=== PATIENT | female | born 1980 | race Caucasian/White ===

== ENCOUNTER 2020-07-13 11:55 | Emergency (ER) | payer OTHER ==
[~2020-07-13 11:55] MED LIST: COLAZAL750 MG PO; CYMBALTA 30MG C30 MG PO; HUMIRA40 MG/0.8 SC; K-DUR20 MEQ PO; PROTONIX 40MG T40 MG PO
[2020-07-13 12:41] LABS: BASOPHIL 0.8 % (0-2); EOSINOPHIL 2.1 % (0-5); HCT 39.1 % (37.0-47.0); MCH 24.7 pg (25.0-31.0); MCHC 30.7 g/dL (32.0-36.0); MCV 80.6 fL (78.0-100.0); MONOCYTE 10.8 % (0-12); MPV 9.2 fL (6.0-9.5); NEUTROPHIL 60.2 % (41-80); NRBC 0; PLT 458 K/uL (150-400); RBC 4.85 M/uL (4.20-5.40); RDW 16.9 % (11.5-14.0); WBC 8.4 K/uL (4.0-10.5)
[2020-07-13 12:41] LABS: BILIRUBIN NEGATIVE (NEGATIVE); BLOOD NEGATIVE Ery/uL (NEGATIVE); CLARITY CLEAR (CLEAR); COLOR YELLOW (YELLOW); GLUCOSE (U) NORMAL (NORMAL); LEUKOCYTES NEGATIVE Leu/uL (NEGATIVE); NITRITE NEGATIVE (NEGATIVE); PROTEIN NEGATIVE (NEGATIVE); UROBILINOGEN 0.2 mg/dL (0.2-1.0)
[2020-07-13 13:00] LABS: ALBUMIN 3.6 g/dL (3.4-5.0); BILIRUBIN - TOTAL 0.3 mg/dL (0.2-1.0); BUN/CREAT RATIO (CALC) 12.3 RATIO; CREATININE 0.65 mg/dL (0.51-0.95); GLOBULIN (CALCULATION) 4.1 g/dL; TOTAL PROTEIN 7.7 g/dL (6.4-8.2)
== END 2020-07-13 15:10 | disposition home or self-care (01) ==
LOC: FER 11:55
PROVIDERS: Internal Medicine
DX: R10.84 Generalized abdominal pain (principal); R11.0 Nausea; Z90.49 Acquired absence of other specified parts of digestive tract; Z98.890 Other specified postprocedural states
CPT/HCPCS: 36415; 80053; 81003; 82150; 83690; 85025; J7030; Q9967

== ENCOUNTER 2020-07-17 00:35 | Emergency (ER) | payer OTHER ==
[2020-07-17 00:59] LABS: BASOPHIL 0.7 % (0-2); EOSINOPHIL 2.6 % (0-5); HCT 37.4 % (37.0-47.0); HGB 11.9 g/dl (12.5-16.0); LYMPHOCYTE 27.2 % (15-48); MCH 25.5 pg (25.0-31.0); MCHC 31.8 g/dL (32.0-36.0); MCV 80.3 fL (78.0-100.0); MONOCYTE 9.2 % (0-12); MPV 9.3 fL (6.0-9.5); NRBC 0; PLT 460 K/uL (150-400); RBC 4.66 M/uL (4.20-5.40); WBC 11.1 K/uL (4.0-10.5)
[2020-07-17 01:03] LABS: INR 1.01 (0.9-1.2); PROTHROMBIN TIME 12.6 SECONDS (11.4-13.6)
[2020-07-17 01:10] LABS: ALBUMIN 3.5 g/dL (3.4-5.0); BILIRUBIN - TOTAL 0.1 mg/dL (0.2-1.0); BUN/CREAT RATIO (CALC) 18.3 RATIO; CREATININE 0.6 mg/dL (0.51-0.95); GLOBULIN (CALCULATION) 3.9 g/dL; POTASSIUM 3.9 mmol/L (3.5-5.1); TOTAL PROTEIN 7.4 g/dL (6.4-8.2)
[2020-07-17 03:01] LABS: FT4 (FREE T4) 0.9 ng/dL (0.76-1.46)
[2020-07-17] MEDS ORDERED: ATARAX25 MG PO (04:16)
== END 2020-07-17 04:21 | disposition home or self-care (01) ==
LOC: FER 00:35
PROVIDERS: Emergency Medicine Emergency Medical Services
DX: F41.9 Anxiety disorder, unspecified (principal); Z86.16 Personal history of COVID-19; R07.89 Other chest pain
CPT/HCPCS: 36415; 71045; 71275; 80053; 83690; 83880; 84439; 84443; 84484; 85025; 85379; 85610; 85730; 93005; J2270; J2405; J7040; Q9967